=== PATIENT | female | born 1965 | race Caucasian/White ===

== ENCOUNTER 2021-02-17 08:26 | Emergency (ER) | payer OTHER ==
[~2021-02-17] VITALS: Ht 152.4 cm; Wt 62.1 kg
--- NOTE | 2021-02-17 08:38 | NUR ---
TO ER BED 3, C/O NAUSEA AND VOMITING FOR 3DAYS, DENIES DIARRHEA, AAOX4, BREATHING EVEN AND NON LABORED, ATTACHED TO MONITOR AND CHANGED INTO A GOWN.
[2021-02-17] MEDS ORDERED: ONDANSETRON HCL/PF 4 MG/2 ML VIAL IVP ONE (09:00)
[2021-02-17] MEDS ORDERED: IV NS 0.9% 1,000 ML BAG IV ONE (09:00)
[2021-02-17] MEDS ORDERED: ONDANSETRON HCL/PF 4 MG/2 ML VIAL ONE (09:03)
[2021-02-17 09:57] LABS: ALBUMIN 4.4 g/dL (3.4-5.0); BASOPHILS % (AUTO) 0.5 % (0.0-2.0); BILIRUBIN,DIRECT 0.7 mg/dL (0.0-0.2); BILIRUBIN,TOTAL 2.1 mg/dL (0.2-1.0); CALCIUM, SERUM 10.2 mg/dL (8.5-10.1); CREATININE 1.1 mg/dL (0.6-1.3); EOSINOPHILS % (AUTO) 0.1 % (0.0-6.0); HEMATOCRIT 41 % (33-45); HEMOGLOBIN 13.5 g/dL (11.5-14.8); LYMPHOCYTES # (AUTO) 0.4 K/uL (0.8-4.8); LYMPHOCYTES % (AUTO) 8.5 % (20.0-44.0); MEAN CORPUSCULAR HGB CONC 33 g/dl (31.0-36.0); MEAN CORPUSCULAR VOLUME 109 fL (82-100); MONOCYTES # (AUTO) 0.3 K/uL (0.1-1.30); MONOCYTES % (AUTO) 7.5 % (2.0-12.0); NEUTROPHILS # (AUTO) 3.7 K/uL (1.8-8.9); NEUTROPHILS % (AUTO) 83.4 % (43.0-81.0); PLATELET COUNT (AUTO) 125 K/uL (150-450); POTASSIUM 3.7 mmol/L (3.5-5.1); RED BLOOD CELL COUNT(AUTO) 3.72 MIL/uL (4.0-5.2); WHITE BLOOD COUNT (AUTO) 4.4 K/uL (4.3-11.0)
--- NOTE | 2021-02-17 10:46 | NUR ---
COVID SWAB DONE AND SENT TO THE LAB
[2021-02-17] MEDS ORDERED: ONDA4TAB11 PO (11:21)
[2021-02-17] MEDS ORDERED: OMEP40CA21 PO (11:21)
[2021-02-17 11:31] VITALS: BP 123/85
== END 2021-02-17 11:31 | disposition home or self-care (01) ==
LOC: ER 10:17
DX: R11.2 Nausea with vomiting, unspecified (principal); R19.7 Diarrhea, unspecified; Z20.822 Contact with and (suspected) exposure to COVID-19; Z88.2 Allergy status to sulfonamides
CPT/HCPCS: 36415; 74176; 80048; 80076; 83690; 85025; 87426; 96361; 96374; 99284; C9803; J2405

== ENCOUNTER 2021-02-18 16:02 | Emergency (ER) | payer OTHER ==
[~2021-02-18] VITALS: Ht 152.4 cm; Wt 62.6 kg
[~2021-02-18 16:02] MED LIST: OMEP40CA21 PO; ONDA4TAB11 PO
--- NOTE | 2021-02-18 16:02 | NUR ---
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 WILL CONTINUE TO MONITOR.
--- NOTE | 2021-02-18 16:48 | NUR ---
URINE SPECIMEN COLLECTED AND SENT TO LAB.
--- NOTE | 2021-02-18 16:50 | NUR ---
MOVE SHEET SUBMITTED.
--- NOTE | 2021-02-18 16:55 | NUR ---
IV LINE ESTABLISHED BLOOD DRAWN AND SENT TO LAB.
[2021-02-18 17:10] LABS: BASOPHILS % (AUTO) 0.4 % (0.0-2.0); EOSINOPHILS % (AUTO) 0.1 % (0.0-6.0); HEMATOCRIT 37 % (33-45); HEMOGLOBIN 12.4 g/dL (11.5-14.8); LYMPHOCYTES # (AUTO) 0.7 K/uL (0.8-4.8); LYMPHOCYTES % (AUTO) 9.3 % (20.0-44.0); MEAN CORPUSCULAR HGB CONC 34 g/dl (31.0-36.0); MEAN CORPUSCULAR VOLUME 109 fL (82-100); MONOCYTES # (AUTO) 0.9 K/uL (0.1-1.30); NEUTROPHILS # (AUTO) 6.2 K/uL (1.8-8.9); NEUTROPHILS % (AUTO) 79.2 % (43.0-81.0); PLATELET COUNT (AUTO) 123 K/uL (150-450); WHITE BLOOD COUNT (AUTO) 7.8 K/uL (4.3-11.0)
--- NOTE | 2021-02-18 17:26 | NUR ---
TAKEN TO CT
--- NOTE | 2021-02-18 17:26 | NUR ---
PT IS WHEELED TO CT SCAN VIA [facility].
[2021-02-18 17:42] LABS: ALBUMIN 4.4 g/dL (3.4-5.0); BILIRUBIN,DIRECT 0.7 mg/dL (0.0-0.2); BILIRUBIN,TOTAL 1.8 mg/dL (0.2-1.0); CALCIUM, SERUM 9.4 mg/dL (8.5-10.1); CREATININE 1.5 mg/dL (0.6-1.3); POTASSIUM 3.1 mmol/L (3.5-5.1); TOTAL PROTEIN, SERUM 8.4 g/dL (6.4-8.2)
--- NOTE | 2021-02-18 17:42 | NUR ---
COVID ANTIGEN SWAB DONE AND SENT TO LAB
--- NOTE | 2021-02-18 18:08 | NUR ---
BERNICE MARTIN CM CALLED [phone] PLEASE FAX UPDATED CLINICALS TO [phone]
--- NOTE | 2021-02-18 18:36 | NUR ---
DR. BONILLA SPEAKING WITH DR. ESCOBAR.
[2021-02-18] MEDS ORDERED: IV NS 0.9% 500 ML BAG IV ONE (19:00)
[2021-02-18 19:24] LABS: BILIRUBIN,URINE LARGE (NEGATIVE); COLOR,URINE DARK YELLOW (YELLOW); LEUKOCYTE ESTERASE ,URINE TRACE (NEGATIVE); NITRITE, URINE POSITIVE (NEGATIVE); PROTEIN,URINE 100 mg/dl (NEGATIVE); UGLUCOSE 100 MG/DL mg/dL (NEGATIVE)
[2021-02-18 19:29] LABS: BACTERIA,URINE 1+ /HPF (None Seen); HYALINE CASTS, URINE Moderate /LPF (None Seen); RBC,URINE 0-2 /HPF (0-2); SQUAMOUS EPITHELIAL CELL,UR Few /HPF (None Seen); YEAST,URINE Few /HPF (None Seen)
--- NOTE | 2021-02-18 19:36 | NUR ---
MARIO BOLDEN CALLED PT ACCEPTED TO [facility]. AWAITING BED AND TRANSPORT INFO.
--- NOTE | 2021-02-18 20:32 | NUR ---
PATIENT ACCEPTED AT [facility] UNDER MD [address] ROOM 443 CALL FOR REPORT REGAL TO SET UP TRANSPROT, WILL CALL BACK WITH ETA
--- NOTE | 2021-02-18 21:40 | NUR ---
REPORT GIVEN TO STEVE SOMERS
--- NOTE | 2021-02-18 22:00 | NUR ---
[facility] 260 TRANSFERRING PT TO [facility]. PT IN STABLE CONDITION. ALL BELONGINGS WITH PT.
[2021-02-18 22:20] VITALS: BP 137/67
== END 2021-02-18 22:20 | disposition short-term general hospital (02) ==
LOC: ER 16:16
DX: R41.82 Altered mental status, unspecified (principal); R27.0 Ataxia, unspecified; Z88.2 Allergy status to sulfonamides; Z20.822 Contact with and (suspected) exposure to COVID-19; R94.31 Abnormal electrocardiogram [ECG] [EKG]
CPT/HCPCS: 36415; 70450; 71045; 80048; 80061; 80076; 80307; 80320; 81001; 84484; 85025; 85730; 87081; 87086; 87426; 93005; 96360; 99285; C9803; J7030; G0480

== ENCOUNTER 2021-05-08 08:15 | Emergency (ER) | payer OTHER ==
[~2021-05-08] VITALS: Ht 172.7 cm; Wt 58.5 kg
[2021-05-08] MEDS ORDERED: LORAZEPAM INJ 2 MG/ML VIAL IVP ONE (08:30)
[2021-05-08] MEDS ORDERED: IV NS 0.9% 1,000 ML BAG IV ONE (08:30)
[2021-05-08] MEDS ORDERED: ONDANSETRON HCL/PF 4 MG/2 ML VIAL IVP ONE (08:30)
--- NOTE | 2021-05-08 08:30 | NUR ---
The patient is [id number] home c/o nausea and vomiting since yesterday. 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 The patient is alert and oriented x4. Denies pain. In room air and denies SOB. Respiration regular and unlabored. Will continue to monitor the patient.
--- NOTE | 2021-05-08 08:37 | NUR ---
IV LINE IS ESTABLISHED, BLOOD SPECIMEN COLLECTED AND SENT TO THE LAB. THE LINE IS SALINE LOCKED.
[2021-05-08] MEDS ORDERED: ONDANSETRON HCL/PF 4 MG/2 ML VIAL ONE ×2 (08:38→14:57)
[2021-05-08] MEDS ORDERED: LORAZEPAM INJ 2 MG/ML VIAL ONE ×2 (08:38→09:02)
[2021-05-08] MEDS ORDERED: ONDA4TAB11 PO (08:59)
[2021-05-08] MEDS ORDERED: LORAZEPAM INJ 2 MG/ML VIAL IV ONE (09:00)
[2021-05-08 09:01] LABS: BASOPHILS % (AUTO) 0.4 % (0.0-2.0); HEMATOCRIT 36 % (33-45); HEMOGLOBIN 12.4 g/dL (11.5-14.8); LYMPHOCYTES # (AUTO) 0.3 K/uL (0.8-4.8); LYMPHOCYTES % (AUTO) 5.7 % (20.0-44.0); MEAN CORPUSCULAR HGB CONC 34 g/dl (31.0-36.0); MEAN CORPUSCULAR VOLUME 107 fL (82-100); MONOCYTES # (AUTO) 0.4 K/uL (0.1-1.30); MONOCYTES % (AUTO) 6.2 % (2.0-12.0); NEUTROPHILS # (AUTO) 5.1 K/uL (1.8-8.9); NEUTROPHILS % (AUTO) 87.7 % (43.0-81.0); PLATELET COUNT (AUTO) 96 K/uL (150-450); RED BLOOD CELL COUNT(AUTO) 3.35 MIL/uL (4.0-5.2); WHITE BLOOD COUNT (AUTO) 5.8 K/uL (4.3-11.0)
--- NOTE | 2021-05-08 09:06 | NUR ---
MOVE SHEET SUBMITTED AND CALLED FOR TELE BED.
--- NOTE | 2021-05-08 09:08 | NUR ---
covid antigen swab done and sent to the lab
[2021-05-08 09:39] LABS: ALANINE AMINOTRANSFERASE 92 U/L (12-78); ALBUMIN 4.1 g/dL (3.4-5.0); ALCOHOL, BLOOD < 3 mg/dL (0-0); ALKALINE PHOSPHATASE 119 U/L (46-116); ASPARTATE AMINOTRANSFERASE 197 U/L (15-37); BILIRUBIN,DIRECT 0.9 mg/dL (0.0-0.2); BILIRUBIN,TOTAL 2.6 mg/dL (0.2-1.0); CALCIUM, SERUM 10.3 mg/dL (8.5-10.1); CARBON DIOXIDE 26 mmol/L (21-32); CHLORIDE 98 mmol/L (98-107); CREATININE 1.1 mg/dL (0.6-1.3); GLUCOSE 83 mg/dL (74-106); POTASSIUM 3.5 mmol/L (3.5-5.1); SODIUM SERUM 142 mmol/L (136-145); TOTAL PROTEIN, SERUM 8.2 g/dL (6.4-8.2); UREA NITROGEN, BLOOD 16 mg/dL (7-18)
[2021-05-08 09:43] LABS: ACETAMINOPHEN 0 ug/ml (10-30)
--- NOTE | 2021-05-08 09:44 | NUR ---
URINE COLLECTED AND SENT TO THE LAB
[2021-05-08 10:30] LABS: BILIRUBIN,URINE SMALL (NEGATIVE); COLOR,URINE DARK YELLOW (YELLOW); LEUKOCYTE ESTERASE ,URINE NEGATIVE (NEGATIVE); NITRITE, URINE NEGATIVE (NEGATIVE); PROTEIN,URINE 30 mg/dl (NEGATIVE); UGLUCOSE NEGATIVE (NEGATIVE); UROBILINOGEN,URINE 0.2 EU/dL (0.2)
[2021-05-08 10:52] LABS: LYMPHOCYTES % (MANUAL) 5 % (16-48); MONOCYTES % (MANUAL) 7 % (0-11.0); NEUTROPHILS % (MANUAL) 88 (42-76)
--- NOTE | 2021-05-08 11:22 | NUR ---
NO CALL BACK FROM ASSOCIATE PRODUCER,DR ADEOLA VELASQUEZ
--- NOTE | 2021-05-08 11:25 | NUR ---
DR. MIR SPEAKING WITH DR. UMANA.
[2021-05-08 11:34] LABS: BACTERIA,URINE Few /HPF (None Seen); RBC,URINE 0-2 /HPF (0-2); SQUAMOUS EPITHELIAL CELL,UR Few /HPF (None Seen); YEAST,URINE Rare /HPF (None Seen)
--- NOTE | 2021-05-08 12:22 | NUR ---
PER MARIO BOLDEN OF [place] DR. MIR WANTS TO TRANSFER PATIENT TO [facility]. DR. UMANA INFORMED.
--- NOTE | 2021-05-08 12:24 | NUR ---
MARIO FROM [facility] CALLED [phone] WILL LOOK FOR BEDS AT [facility].
--- NOTE | 2021-05-08 14:52 | NUR ---
RECEIVED CALL FROM MARIO QUEEN DOOR LINER (TEL [phone]) WHO STATED THAT THE PATIENT IS ACCEPTED TO [facility]. MARIO WILL CALL BACK TO GIVEN ROOM NUMBER AND TRANSPO INFO.
--- NOTE | 2021-05-08 15:45 | NUR ---
RECEIVED ORDER OF ZOFRAN 4 MG IV PUSH ONCE PER DR TAFOYA. THE ORDER IS READ BACK, VERIFIED. NOTED AND CARRIED OUT.
[2021-05-08] MEDS ORDERED: ONDANSETRON HCL/PF - ER 4 MG/2 ML VIAL IV ONE (16:00)
--- NOTE | 2021-05-08 16:47 | NUR ---
PT ACCEPTED TO [facility] [address] [facility] [place] [address]AMIL ROOM 26-B PLEASE CALL [phone] FOR REPORT. TRANSPORT WILL BE WITH [facility] WITH ETA OF 2000 PER MARIO [phone]
--- NOTE | 2021-05-08 19:27 | NUR ---
26-M MED-SURG TEL [phone]
--- NOTE | 2021-05-08 19:33 | NUR ---
REPORT GIVEN TO NURSE FÉLIX MORGAN [facility]
--- NOTE | 2021-05-08 20:36 | NUR ---
[facility] MARIO [phone] WILL FOLLOW UP ABOUT NEW ETA OF TRANSPORT.
--- NOTE | 2021-05-08 20:43 | NUR ---
PER MARIO CM, AMBULANCE ETA 20MIN
--- NOTE | 2021-05-08 22:27 | NUR ---
[facility] AT BED SIDE . REPORT GIVEN
--- NOTE | 2021-05-08 22:46 | NUR ---
PT WAS TRANSFERRED TO [facility] IN STABLE CONDITIONS . BELONGINGS PICKED UP
[2021-05-08 23:34] VITALS: BP 130/88
== END 2021-05-08 22:46 | disposition short-term general hospital (02) ==
LOC: ER 08:16
DX: F10.239 Alcohol dependence with withdrawal, unspecified (principal); F10.229 Alcohol dependence with intoxication, unspecified; Y90.0 Blood alcohol level of less than 20 mg/100 ml; F41.9 Anxiety disorder, unspecified; Z88.2 Allergy status to sulfonamides; R79.89 Other specified abnormal findings of blood chemistry; Z20.822 Contact with and (suspected) exposure to COVID-19
CPT/HCPCS: 36415; 80048; 80076; 80143; 80307; 80320; 81001; 85007; 85025; 87426; 96361; 96374; 96375; 96376; 99285; C9803; J2060 ×2; J2405 ×2; J7030; G0480

== ENCOUNTER 2021-09-19 14:30 | Emergency (ER) | payer OTHER ==
[~2021-09-19] VITALS: Ht 175.3 cm; Wt 54.4 kg
[~2021-09-19 14:30] MED LIST changes: -OMEP40CA21 PO
--- NOTE | 2021-09-19 14:35 | NUR ---
BIB S C/O R SIDED LOWER ABDOMINAL PAIN X 2 DAYS. REPORTS PAIN FELT ON R SIDE WHEN PUSH ON L SIDE. REPORTS HAD BOWEL MOVEMENT TODAY. ALSO REPORTS ANXIETY. AAOX4, BREATHING EVEN AND UNLABORED, PULSES 2+ BILATERALLY, SKIN WARM AND DRY.
[2021-09-19] MEDS ORDERED: IV NS 0.9% 1,000 ML BAG IV ONE (15:30)
[2021-09-19] MEDS ORDERED: LORAZEPAM INJ 2 MG/ML VIAL IV ONE (15:30)
[2021-09-19] MEDS ORDERED: PANTOPRAZOLE 40 MG VIAL IV ONE (15:30)
[2021-09-19 15:52] LABS: BASOPHILS % (AUTO) 0.3 % (0.0-2.0); EOSINOPHILS % (AUTO) 0.1 % (0.0-6.0); HEMATOCRIT 36 % (33-45); HEMOGLOBIN 12.3 g/dL (11.5-14.8); LYMPHOCYTES # (AUTO) 0.6 K/uL (0.8-4.8); LYMPHOCYTES % (AUTO) 8.2 % (20.0-44.0); MEAN CORPUSCULAR HGB CONC 34 g/dl (31.0-36.0); MEAN CORPUSCULAR VOLUME 104 fL (82-100); MONOCYTES # (AUTO) 0.7 K/uL (0.1-1.30); MONOCYTES % (AUTO) 9.3 % (2.0-12.0); NEUTROPHILS # (AUTO) 5.8 K/uL (1.8-8.9); NEUTROPHILS % (AUTO) 82.1 % (43.0-81.0); PLATELET COUNT (AUTO) 131 K/uL (150-450); RED BLOOD CELL COUNT(AUTO) 3.49 MIL/uL (4.0-5.2)
[2021-09-19 15:57] LABS: CALCIUM, SERUM 9.4 mg/dL (8.5-10.1); CREATININE 0.6 mg/dL (0.6-1.3); POTASSIUM 3.4 mmol/L (3.5-5.1)
[2021-09-19 16:03] LABS: ALBUMIN 4.2 g/dL (3.4-5.0); BILIRUBIN,DIRECT 0.3 mg/dL (0.0-0.2); BILIRUBIN,TOTAL 1.2 mg/dL (0.2-1.0); TOTAL PROTEIN, SERUM 8.5 g/dL (6.4-8.2)
[2021-09-19] MEDS ORDERED: LORAZEPAM INJ 2 MG/ML VIAL ONE (16:33)
[2021-09-19] MEDS ORDERED: PANTOPRAZOLE 40 MG VIAL ONE (16:33)
[2021-09-19 16:41] LABS: LYMPHOCYTES % (MANUAL) 16 % (16-48); NEUTROPHILS % (MANUAL) 79 (42-76)
[2021-09-19 16:42] LABS: MONOCYTES % (MANUAL) 5 % (0-11.0)
[2021-09-19] MEDS ORDERED: IBUP-1957 PO (17:00)
--- NOTE | 2021-09-19 17:03 | NUR ---
URINE SAMPLE OBTAINED AND SENT TO LAB
--- NOTE | 2021-09-19 17:42 | NUR ---
IV removed. Catheter intact and site benign. Pressure and 4x4 applied to site. No bleeding noted.
--- NOTE | 2021-09-19 17:45 | NUR ---
Patient discharged to home in stable condition. Written and verbal after care instructions given. Patient verbalizes understanding of instruction.
[2021-09-19 17:48] LABS: BILIRUBIN,URINE SMALL (NEGATIVE); LEUKOCYTE ESTERASE ,URINE NEGATIVE (NEGATIVE); NITRITE, URINE POSITIVE (NEGATIVE); PROTEIN,URINE 30 mg/dl (NEGATIVE); UGLUCOSE NEGATIVE (NEGATIVE); UROBILINOGEN,URINE 0.2 EU/dL (0.2)
[2021-09-19 17:51] LABS: COLOR,URINE DARK YELLOW (YELLOW)
[2021-09-19 18:02] LABS: BACTERIA,URINE Many /HPF (None Seen); RBC,URINE 0-2 /HPF (0-2); SQUAMOUS EPITHELIAL CELL,UR Few /HPF (None Seen)
[2021-09-19 18:21] VITALS: BP 120/86
== END 2021-09-19 17:52 | disposition home or self-care (01) ==
LOC: ER 14:50
DX: R10.31 Right lower quadrant pain (principal); F10.10 Alcohol abuse, uncomplicated; F41.9 Anxiety disorder, unspecified; Z88.2 Allergy status to sulfonamides; Z79.899 Other long term (current) drug therapy; Y90.4 Blood alcohol level of 80-99 mg/100 ml
CPT/HCPCS: 36415; 71045; 74176; 80048; 80076; 80320; 81001; 83690; 85007; 85025; 87086; 93005; 96361; 96374; 96375; 99285; C9113; J2060; J7030; 87186-TC; G0480

== ENCOUNTER 2021-11-28 00:37 | Emergency (ER) | payer OTHER ==
[~2021-11-28] VITALS: Ht 172.7 cm; Wt 54.4 kg
[~2021-11-28 00:37] MED LIST changes: +IBUP-1957 PO
[2021-11-28] MEDS ORDERED: ONDANSETRON HCL/PF 4 MG/2 ML VIAL ONE ×2 (03:45→08:44)
--- NOTE | 2021-11-28 03:45 | NUR ---
PATIENT BIBSELF C/O N/V AND NOT BEING ABLE TO SLEEP FOR THREE DAYS. PATIENT IS A/O, RR EVEN AND UNLABORED, NO SOB NOTED. PATIENT TAKEN TO ER BED 11. PATIENT CONNECTED TO MONITORS.
--- NOTE | 2021-11-28 03:57 | NUR ---
BLOOD WORK COLLECTED SENT TO LAB
[2021-11-28] MEDS: IV NS 0.9% 1,000 ML BAG IV ONE (04:00)
[2021-11-28] MEDS: ONDANSETRON HCL/PF 4 MG/2 ML VIAL IVP ONE (04:00)
[2021-11-28 04:29] LABS: BASOPHILS % (AUTO) 0.2 % (0.0-2.0); HEMATOCRIT 41 % (33-45); HEMOGLOBIN 13.7 g/dL (11.5-14.8); LYMPHOCYTES # (AUTO) 0.4 K/uL (0.8-4.8); LYMPHOCYTES % (AUTO) 6.3 % (20.0-44.0); MEAN CORPUSCULAR HGB CONC 34 g/dl (31.0-36.0); MEAN CORPUSCULAR VOLUME 104 fL (82-100); MONOCYTES # (AUTO) 0.6 K/uL (0.1-1.30); MONOCYTES % (AUTO) 9.1 % (2.0-12.0); NEUTROPHILS # (AUTO) 5.3 K/uL (1.8-8.9); NEUTROPHILS % (AUTO) 84.4 % (43.0-81.0); PLATELET COUNT (AUTO) 99 K/uL (150-450); RED BLOOD CELL COUNT(AUTO) 3.92 MIL/uL (4.0-5.2); WHITE BLOOD COUNT (AUTO) 6.3 K/uL (4.3-11.0)
[2021-11-28 05:03] LABS: ALBUMIN 4.8 g/dL (3.4-5.0); BILIRUBIN,DIRECT 0.8 mg/dL (0.0-0.2); BILIRUBIN,TOTAL 2.5 mg/dL (0.2-1.0); CALCIUM, SERUM 10.2 mg/dL (8.5-10.1); CREATININE 1.5 mg/dL (0.6-1.3); TOTAL PROTEIN, SERUM 9.2 g/dL (6.4-8.2)
[2021-11-28 05:31] LABS: THYROID STIMULATING HORMONE 2.805 uIU/mL (0.358-3.74)
--- NOTE | 2021-11-28 06:03 | NUR ---
US AT BEDSIDE
--- NOTE | 2021-11-28 06:42 | NUR ---
SPOKE TO [facility] AT [facility] SIDE. POSSIBLE TRANSFER
--- NOTE | 2021-11-28 08:10 | NUR ---
DR ARRIETA AT BEDSIDE W/ PT
--- NOTE | 2021-11-28 08:38 | NUR ---
DR MIR AT BEDSIDE
[2021-11-28] MEDS ORDERED: LORAZEPAM INJ 2 MG/ML VIAL ONE (08:43)
[2021-11-28] MEDS: LORAZEPAM INJ 2 MG/ML VIAL IV ONE (08:53)
[2021-11-28] MEDS: ONDANSETRON HCL/PF - ER 4 MG/2 ML VIAL IV ONE (08:53)
--- NOTE | 2021-11-28 10:45 | NUR ---
[facility] CALLED WITH ACCEPTANCE INFO PT IS GOING TO [place] ROOM 2231 NUMBER FOR REPORT [phone] MARIO AWAITING A CALL BACK FOR PEER TO PEER AND DANIKA BOYD
--- NOTE | 2021-11-28 11:00 | NUR ---
[facility] ETA 1400
--- NOTE | 2021-11-28 11:54 | NUR ---
PT REPORT GIVEN TO RADHA MARTIN, AT [facility]
--- NOTE | 2021-11-28 11:57 | NUR ---
SPOKE W/ KAITLIN STINSONFRNAVI, ([phone]); INFORMED ABOUT PT'S TRANSFER TO [place] TODAY.
[2021-11-28 11:58] VITALS: BP 126/72
--- NOTE | 2021-11-28 14:13 | NUR ---
EMT AT BEDSIDE TO [facility] PT. BEDSIDE ENDORSEMENT DONE.
== END 2021-11-28 14:18 | disposition short-term general hospital (02) ==
LOC: ER 00:39
DX: N17.9 Acute kidney failure, unspecified (principal); R11.2 Nausea with vomiting, unspecified; K85.90 Acute pancreatitis without necrosis or infection, unspecified; R17 Unspecified jaundice; F10.10 Alcohol abuse, uncomplicated; R74.01 Elevation of levels of liver transaminase levels; Z88.2 Allergy status to sulfonamides; Z20.822 Contact with and (suspected) exposure to COVID-19; E87.6 Hypokalemia
CPT/HCPCS: 36415; 76705; 80048; 80076; 83690; 83735; 84439; 84443; 85025; 87426; 96361; 96374; 96375; 96376; 99291; C9803; J2060; J2405 ×3; J7030